=== PATIENT | female | born 1985 | race Two or more races ===

== ENCOUNTER 2018-06-09 16:37 | Emergency (ER) | payer OTHER ==
[2018-06-09 16:51] VITALS: BP 95/66; PULSE 76; TEMP 98.8; BMI 27.3
--- NOTE | 2018-06-09 17:37 | PDOC ---
History of Present Illness - General Chief Complaint: Cold Symptoms Stated Complaint: COLD SUMPTOMS Time Seen by Provider: 06/09/18 16:59 History Source: Patient - History of Present Illness Initial Comments: 06/09/18 18:00 32-year-old female complaining of cough nasal congestion, chest congestion for the last 4-5 days. Patient has been taking Advil PM at home with minimal symptoms and pain reports that cough is worse with laying down. Denies chest pain, throat pain, nausea, vomiting, abdominal pain. Reports one episode of fever 3 days ago. Denies past medical history. Past History - Past Medical History Allergies/Adverse Reactions: Allergies Allergy/AdvReac Type Severity Reaction Status Date / Time No Known Allergies Allergy Verified 12/03/15 16:56 Home Medications: Ambulatory Orders Cyclobenzaprine HCl [Flexeril -] 10 mg PO Q8H PRN #21 tablet 12/03/15 Naproxen [Naprosyn -] 500 mg PO Q12H PRN #14 tablet 12/03/15 Albuterol Sulfate Inhaler - [Ventolin HFA Inhaler -] 1 - 2 inh PO Q4H PRN #1 inhaler 06/09/18 Benzonatate [Tessalon Pearls -] 100 mg PO TID PRN #21 capsule 06/09/18 Guaifenesin [Mucinex] 600 mg PO BID PRN #20 tab.er.12h 06/09/18 Inhaler, Assist Devices [Space Chamber Plus] 1 each MC QID #1 spacer 06/09/18 Anemia: Yes Asthma: No Cancer: No Cardiac Disorders: No COPD: No Diabetes: No HTN: No Seizures: No Thyroid Disease: No - Immunization History Immunization Up to Date: No - Suicide/Smoking/Psychosocial Hx Smoking Status: No Smoking History: Never smoked Have you smoked in the past 12 months: No Number of Cigarettes Smoked Daily: 0 Information on smoking cessation initiated: No Hx Alcohol Use: No Drug/Substance Use Hx: No Hx Substance Use Treatment: No Review of Systems - Review of Systems Able to Perform ROS?: Yes Is the patient limited Armenian proficient: No Constitutional: Yes: Fever HEENTM: Yes: Nose Congestion. No: Symptoms Reported, See HPI, Eye Pain, Blurred Vision, Tearing, Recent change in vision, Double Vision, Cataracts, Ear Pain, Ocular Prothesis, Ear Discharge, Nose Pain, Tinnitus, Nose Bleeding, Hearing Loss, Throat Pain, Throat Swelling, Mouth Pain, Dental Problems, Difficulty Swallowing, Mouth Swelling, Other Respiratory: Yes: Cough. No: Symptoms reported, See HPI, Orthopnea, Shortness of Breath, SOB with Exertion, SOB at Rest, Stridor, Wheezing, Productive cough, Hemoptysis, Other *Physical Exam - Vital Signs Last Vital Signs Temp Pulse Resp BP Pulse Ox 98.8 F 76 18 95/66 98 06/09/18 16:48 06/09/18 16:48 06/09/18 16:48 06/09/18 16:48 06/09/18 16:48 - Physical Exam General Appearance: Yes: Appropriately Dressed HEENT: positive: Normal ENT Inspection Respiratory/Chest: positive: Rhonchi. negative: Respiratory Distress, Accessory Muscle Use, Labored Respiration, Rapid RR Cardiovascular: positive: Regular Rhythm, Regular Rate Gastrointestinal/Abdominal: positive: Normal Bowel Sounds, Soft. negative: Tender Extremity: positive: Normal Capillary Refill, Normal Inspection, Normal Range of Motion Integumentary: positive: Normal Color, Dry, Warm Neurologic: positive: Fully Oriented, Alert, Normal Mood/Affect Progress Note - Progress Note Progress Note: A: flu like symptoms P: Duoneb supportive care discussed with patient *DC/Admit/Observation/Transfer Diagnosis at time of Disposition: Flu-like symptoms - Discharge Dispostion Condition at time of disposition: Stable - Prescriptions Prescriptions: Albuterol Sulfate Inhaler - [Ventolin HFA Inhaler -] 1 - 2 inh PO Q4H PRN #1 inhaler PRN Reason: Cough Benzonatate [Tessalon Pearls -] 100 mg PO TID PRN #21 capsule PRN Reason: Cough Guaifenesin [Mucinex] 600 mg PO BID PRN #20 tab.er.12h PRN Reason: Cough Inhaler, Assist Devices [Space Chamber Plus] 1 each MC QID #1 spacer - Referrals - Patient Instructions Printed Discharge Instructions: DI for Viral Upper Respiratory Infection -- Adult Additional Instructions: drink plenty of fluids take mucinex and tessalon perrle as prescribed. use albuterol with spacer every 4 -6 hours as prescribed. follow up with your doctor as soon as possible. - Post Discharge Activity Forms/Work/School Notes: Back to Work
[2018-06-09] MEDS ORDERED: ALBUTEROL SO4 2.5/IPRATROPIUM 0.5 INH SOL 3 ML VIAL.NEB. NEB ONE ×2 (17:38→17:40)
== END 2018-06-09 18:11 | disposition home or self-care (01) ==
LOC: JERFT 16:37
PROC: 3E0F7GC Introduction of Other Therapeutic Substance into Respiratory Tract, Via Natural or Artificial Opening (ICD-10-PCS; principal; 2018-06-09)
DX: J11.1 Influenza due to unidentified influenza virus with other respiratory manifestations (principal)
CPT/HCPCS: 99281-25

== ENCOUNTER 2023-02-08 12:54 | Emergency (ER) | payer OTHER ==
[2023-02-08 13:11] VITALS: BP 118/57; PULSE 82; RESP 18; TEMP 98; BMI 31.2
[2023-02-08] MEDS ORDERED: FLUORESCEIN NA 1 EA STRIP OU ONE (14:36)
[2023-02-08] MEDS ORDERED: TETRACAINE 0.5% HCL 0.6ML DROPPER.BOTTLE OU ONE (14:36)
[2023-02-08] MEDS ORDERED: FLUORESCEIN NA 1 EA STRIP ONE (14:42)
[2023-02-08] MEDS ORDERED: TETRACAINE 0.5% OPHTH SOLN 2 ML BOTTLE ONE (14:43)
== END 2023-02-08 15:10 | disposition home or self-care (01) ==
LOC: JERFT 12:54
DX: H02.842 Edema of right lower eyelid (principal); H01.002 Unspecified blepharitis right lower eyelid; H10.11 Acute atopic conjunctivitis, right eye
CPT/HCPCS: 99283-25

== ENCOUNTER 2023-02-10 12:17 | Emergency (ER) | payer OTHER ==
[2023-02-10 12:50] VITALS: BP 103/66; PULSE 92; RESP 18; TEMP 98.4; BMI 31.2
[2023-02-10] MEDS ORDERED: FLUORESCEIN NA 1 EA STRIP OD ONE (13:50)
[2023-02-10] MEDS ORDERED: TETRACAINE 0.5% HCL 0.6ML DROPPER.BOTTLE OD ONE (13:50)
[2023-02-10] MEDS ORDERED: FLUORESCEIN NA 1 EA STRIP ONE (13:51)
[2023-02-10] MEDS ORDERED: TETRACAINE 0.5% OPHTH SOLN 2 ML BOTTLE ONE (13:51)
[2023-02-10] MEDS ORDERED: KETOROLAC TROMETHAMINE 30 MG/1 ML VIAL IM ONE (14:25)
[2023-02-10] MEDS ORDERED: KETOROLAC TROMETHAMINE 30 MG/1 ML VIAL ONE (14:27)
== END 2023-02-10 14:51 | disposition home or self-care (01) ==
LOC: JERFT 12:17
PROC: 3E0233Z Introduction of Anti-inflammatory into Muscle, Percutaneous Approach (ICD-10-PCS; principal; 2023-02-10)
DX: R05.9 Cough, unspecified (principal); U07.1 COVID-19; L03.211 Cellulitis of face; L02.01 Cutaneous abscess of face
CPT/HCPCS: 0241U-QW; 36415; 87529; 99284-25